=== PATIENT | male | born 1990 | race Caucasian/White ===

== ENCOUNTER → 2019-10-17 | Outpatient (CLI) | payer OTHER ==
[~2019-10-17] MED LIST: MULTCAP PO
== END ==
LOC: M LABSMTC 09:54
PROVIDERS: ATTEND Anesthesiology
DX: Z01.818 Encounter for other preprocedural examination (principal); Z11.59 Encounter for screening for other viral diseases
CPT/HCPCS: C8903; U0003

== ENCOUNTER 2019-10-20 06:47 | Day surgery (SDC) | payer OTHER ==
[~2019-10-20] VITALS: Ht 177.8 cm; Wt 98.0 kg
[2019-10-20] MEDS: NS 1,000 ML IV ONE (06:00)
[2019-10-20] MEDS ORDERED: SIMETHICONE 40MG/0.6ML DROPS 30ML As Ordered ONE (06:57)
[2019-10-20] MEDS ORDERED: MULTCAP PO (07:12)
[2019-10-20] MEDS ORDERED: LIDOCAINE 2% 100MG/5ML SDV (FOR ANES.) As Ordered ONE (07:34)
[2019-10-20] MEDS ORDERED: propofoL 500 MG/50 ML VIAL As Ordered ONE ×2 (07:34→07:44)
--- NOTE | 2019-10-20 07:57 | ROOR ---
Patient Name: Junito Pineda Procedure Date: 10/20/2019 7:29 AM Date of : 1990 Age: 29 Room: [facility] Gender: Male Note Status: Finalized Procedure: Colonoscopy Indications: Hematochezia, Family history of colon cancer in a first-degree relative before age 60 years Providers: Jack CHIN MD Referring MD: JOSEFINA CARRENO MD Requesting Provider: Medicines: Monitored Anesthesia Care Complications: No immediate complications. Procedure: Pre-Anesthesia Assessment: - The heart rate, respiratory rate, oxygen saturations, blood pressure, adequacy of pulmonary ventilation, and response to care were monitored throughout the procedure. The Colonoscope was introduced through the anus and advanced to 10 cm into the ileum. The colonoscopy was performed without difficulty. The patient tolerated the procedure well. The quality of the bowel preparation was good. Findings: The perianal and digital rectal examinations were normal. Three semi-pedunculated polyps were found in the sigmoid colon. The polyps were 4 to 9 mm in size. These polyps were removed with a hot snare. Resection and retrieval were complete. Small Internal Hemorrhoids. The exam was otherwise without abnormality on direct and retroflexion views. Impression: - Three 4 to 9 mm polyps in the sigmoid colon, removed with a hot snare. Resected and retrieved. - Small Internal Hemorrhoids. - The examination was otherwise normal on direct and retroflexion views. Recommendation: - Repeat colonoscopy in 3 years for surveillance. - Telephone endoscopist for pathology results in 2 weeks. Jack Chin MD Jack CHIN MD 10/20/2019 7:56:54 AM Electronically signed by Jack CHIN MD Number of Addenda: 0 Note Initiated On: 10/20/2019 7:29 AM Estimated Blood Loss: Estimated blood loss: none.
[2019-10-20 08:10] VITALS: BP 129/79
== END 2019-10-20 08:20 | disposition home or self-care (01) ==
LOC: M OPP 06:47
PROVIDERS: ATTEND Internal Medicine Gastroenterology
DX: D12.5 Benign neoplasm of sigmoid colon (principal); K64.8 Other hemorrhoids; Z80.0 Family history of malignant neoplasm of digestive organs; Z88.1 Allergy status to other antibiotic agents